=== PATIENT | female | born 1990 | race Caucasian/White ===

== ENCOUNTER 2017-03-02 14:52 | Emergency (ER) | payer OTHER, SELFPAY ==
[2017-03-02 15:07] VITALS: BMI 27.9
[2017-03-02 15:08] VITALS: RESP 18; TEMP 98.4; O2SAT 100
[2017-03-02] MEDS ORDERED: Sodium Chloride 0.9% 1,000 ML IV STA (15:29)
--- NOTE | 2017-03-02 15:34 | ED PDOC ---
Arrival/HPI - General Chief Complaint: Dizziness/Lightheaded Time Seen by Provider: 03/02/17 15:19 Historian: Patient - History of Present Illness Narrative History of Present Illness (Text): 03/02/17 15:31 26 y/o female, no pmh, nkda, c/o feeling dizziness while picking up a box of object at work x 1 hour. Pt. 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 Past Medical History - Provider Review Nursing Documentation Reviewed: Yes - Infectious Disease Hx of Infectious Diseases: None - Tetanus Immunization Tetanus Immunization: Unknown - Cardiac Hx Cardiac Disorders: No - Pulmonary Hx Respiratory Disorders: No - Neurological Hx Neurological Disorder: No - HEENT Hx HEENT Disorder: No - Renal Hx Renal Disorder: No - Endocrine/Metabolic Hx Hypothyroidism: Yes (no longer on meds) - Hematological/Oncological Hx Blood Disorders: No Hx von Willebrand's Disease: No - Integumentary Hx Dermatological Disorder: No - Musculoskeletal/Rheumatological Hx Musculoskeletal Disorders: No - Gastrointestinal Hx Gastrointestinal Disorders: No - Genitourinary/Gynecological Hx Genitourinary Disorders: No - Psychiatric Hx Psychophysiologic Disorder: No Hx Depression: No Hx Emotional Abuse: No Hx Physical Abuse: No Hx Substance Use: No - Past Surgical History Past Surgical History: No Previous - Anesthesia Hx Anesthesia: No - Suicidal Assessment Feels Threatened In Home Enviroment: No Family/Social History - Physician Review Nursing Documentation Reviewed: Yes Family/Social History: Unknown Family HX Smoking Status: Never Smoked Hx Alcohol Use: No Hx Substance Use: No Hx Substance Use Treatment: No Allergies/Home Meds Allergies/Adverse Reactions: Allergies No Known Allergies Allergy (Verified 03/02/17 15:06) Review of Systems - Review of Systems Constitutional: Fatigue. absent: Fevers Eyes: absent: Vision Changes ENT: absent: Hearing Changes Respiratory: absent: Cough Cardiovascular: absent: Chest Pain Gastrointestinal: absent: Abdominal Pain, Nausea, Vomiting Genitourinary Female: absent: Dysuria Musculoskeletal: absent: Arthralgias, Back Pain, Neck Pain Skin: absent: Rash, Pruritis, Skin Lesions Neurological: Dizziness. absent: Headache, Focal Weakness, Gait Changes, Speech Changes, Facial Droop, Disequilibrium, Seizure Endocrine: absent: Diaphoresis Physical Exam Vital Signs Reviewed: Yes Vital Signs Temp Pulse Resp BP Pulse Ox 03/02/17 19:00 69 18 113/65 100 03/02/17 16:57 76 18 111/67 100 03/02/17 15:07 98.4 F 84 18 132/80 100 Temperature: Afebrile Blood Pressure: Normal Pulse: Regular Respiratory Rate: Normal Appearance: Positive for: Well-Appearing, Non-Toxic, Comfortable Pain Distress: None Mental Status: Positive for: Alert and Oriented X 3 - Systems Exam Head: Present: Atraumatic, Normocephalic Pupils: Present: PERRL Extroacular Muscles: Present: EOMI Conjunctiva: Present: Normal Ears: Present: NORMAL TM, Normal Canal. No: Erythema Mouth: Present: Moist Mucous Membranes Neck: Present: Normal Range of Motion Respiratory/Chest: Present: Clear to Auscultation, Good Air Exchange. No: Respiratory Distress, Accessory Muscle Use Cardiovascular: Present: Regular Rate and Rhythm, Normal S1, S2. No: Murmurs Abdomen: Present: Normal Bowel Sounds. No: Tenderness, Distention, Peritoneal Signs, Rebound Back: Present: Normal Inspection Upper Extremity: Present: Normal Inspection. No: Cyanosis, Edema Lower Extremity: Present: Normal Inspection. No: Edema Neurological: Present: GCS=15, Speech Normal, Motor Func Grossly Intact, Gait Normal, Memory Normal, Other (normal finger to nose test, normal heel to pinedo test, no drift, normal speech, +dixhall pike test. ) Skin: Present: Warm, Dry, Normal Color. No: Rashes Lymphatic: No: Cervical Adenopathy Psychiatric: Present: Alert, Oriented x 3, Normal Insight, Normal Concentration Medical Decision Making ED Course and Treatment: 03/02/17 15:39 -labs/ua r/o anemia/UTI -ekg r/o cardiac arrythymia -Orthostatic -IVF/antivert -CT HEAD r/o acute bleeding -observe and reassess 03/02/17 18:00 -NSR @ 76 BPM, no ST elevation or depression, no T wave inversion, compared with previous ekg. -CT head show no acute findings. -Othostatic v/s within normal limit. -Labs show no acute findings -UA show mild leukocyte, pt. is asymptomatic and not , urine cultre added. -Pt. stated that she has discomfort and headache. IVF/toradol and reglan ordered. 03/02/17 19:53 -Pt. feels completely relief with the IV toradol and reglan. -Pt. feels asymptomatic now, walking and smiling, request to be discharge home, will discharge home. -Discharge home with education on taking tylenol or motrin for pain, meclizine, stay hydrated, no gym or exercise, follow up with your own pmd within 2 days, return to the ER for any new or worsening signs or symptoms. - Lab Interpretations Microbiology Results: Microbiology Results 03/02/17 16:15 Urine,Clean Catch Urine Culture - Final No Growth (<1,000 CFU/ML) Lab Results: 03/02/17 15:35 03/02/17 15:35 Lab Results 03/02/17 16:15: Urine Color Yellow, Urine Appearance Clear, Urine pH 7.0, Ur Specific [place] <= 1.005, Urine Protein Negative, Urine Glucose (UA) Negative, Urine Ketones Negative, Urine Blood Small H, Urine Nitrate Negative, Urine Bilirubin Negative, Urine Urobilinogen 0.2, Ur Leukocyte Esterase Small H, Urine RBC 0 - 2, Urine WBC 0 - 2 03/02/17 15:35: Sodium 139, Potassium 3.8, Chloride 102, Carbon Dioxide 28, Anion Gap 13, BUN 15, Creatinine 0.8, Est GFR ( Amer) > 60, Est GFR (Non- Af Amer) > 60, Random Glucose 85, Calcium 9.5, Total Bilirubin 0.7, AST 27, ALT 28, Alkaline Phosphatase 64, Total Protein 7.5, Albumin 4.1, Globulin 3.4, Albumin/Globulin Ratio 1.2 03/02/17 15:35: WBC 8.8, RBC 4.15, Hgb 13.1, Hct 38.4, MCV 92.5, MCH 31.6, MCHC 34.1, RDW 12.5, Plt Count 291, MPV 10.8, Gran % 60.2, Lymph % (Auto) 31.4, [place] % (Auto) 6.9 H, Eos % (Auto) 1.0 L, Baso % (Auto) 0.5, Gran # 5.28, Lymph # 2.8 , [place] # 0.6, Eos # 0.1, Baso # 0.04 I have reviewed the lab results: Yes Interpretation: Abnormal lab values (+UTI) - RAD Interpretation Radiology Orders: 03/02/17 15:32 HEAD W/O CONTRAST [CT] Stat PROCEDURE: CT HEAD WITHOUT CONTRAST. HISTORY: sudden onset dizziness COMPARISON: None available. TECHNIQUE: Axial computed tomography images were obtained through the head/brain without intravenous contrast. Radiation dose: Total exam DLP = 725.84 mGy-cm. This CT exam was performed using one or more of the following dose reduction techniques: Automated exposure control, adjustment of the mA and/or kV according to patient size, and/or use of iterative reconstruction technique. FINDINGS: HEMORRHAGE: No intracranial hemorrhage. BRAIN: No mass effect or edema. No atrophy or chronic microvascular ischemic changes. VENTRICLES: No hydrocephalus. CALVARIUM: Unremarkable. PARANASAL SINUSES: Unremarkable as visualized. No significant inflammatory changes. MASTOID AIR CELLS: Unremarkable as visualized. No inflammatory changes. OTHER FINDINGS: None. IMPRESSION: No acute intracranial pathology identified. Dump Attendant: Radiologist - EKG Interpretation EKG Interpretation (Text): 03/02/17 15:42 NSR @ 76 BPM, no ST elevation or depression, no T wave inversion, compared with previous ekg. Interpreted by ED Physician: Yes Type: 12 lead EKG Comparison: Com.w/previous EKG - Medication Orders Current Medication Orders: Discontinued Medications Acetaminophen (Tylenol 325mg Tab) Confirm Administered Dose 650 mg .ROUTE .STK- MED ONE Stop: 03/02/17 17:25 Last Admin: 03/02/17 17:26 Dose: Acetaminophen (Tylenol 325mg Tab) 650 mg PO STAT STA Stop: 03/02/17 17:26 Last Admin: 03/02/17 17:26 Dose: 650 mg Sodium Chloride (Sodium Chloride 0.9%) 1,000 mls @ 999 mls/hr IV .Q1H1M STA Stop: 03/02/17 16:29 Last Admin: 03/02/17 15:45 Dose: 999 mls/hr Sodium Chloride (Sodium Chloride 0.9%) 1,000 mls @ 500 mls/hr IV .Q2H RONY Last Admin: 03/02/17 18:34 Dose: 500 mls/hr Ketorolac Tromethamine (Toradol) 30 mg IVP STAT STA Stop: 03/02/17 18:08 Last Admin: 03/02/17 18:34 Dose: 30 mg Meclizine HCl (Antivert) 50 mg PO STAT STA Stop: 03/02/17 15:30 Last Admin: 03/02/17 16:17 Dose: 50 mg Metoclopramide HCl (Reglan) 10 mg IVP STAT STA Stop: 03/02/17 18:08 - PA / CANCER GENETICS ASSISTANT / Resident Statement /DO has reviewed & agrees with the documentation as recorded. Disposition/Present on Arrival - Present on Arrival Any Indicators Present on Arrival: No History of DVT/PE: No History of Uncontrolled Diabetes: No Urinary Catheter: No History of Decub. Ulcer: No History Surgical Site Infection Following: None - Disposition Have Diagnosis and Disposition been Completed?: Yes Diagnosis: Vertigo Disposition: HOME/ ROUTINE Disposition Time: 19:54 Patient Plan: Discharge Condition: IMPROVED Additional Instructions: Discharge home with education on taking tylenol or motrin for pain, meclizine, stay hydrated, no gym or exercise, follow up with your own pmd within 2 days, return to the ER for any new or worsening signs or symptoms. Prescriptions: Meclizine [Meclizine*] 25 mg PO Q6 PRN #30 tab PRN Reason: Other Referrals: PCP,NO [Primary Care Provider] - Follow up with primary Patrick Martinez MD [Staff Provider] - Follow up with primary Lucho Bond MD [Staff Provider] - Follow up with primary [facility] at [facility] [place] [Outside] - Follow up with primary Forms: WORK NOTE
[2017-03-02 16:02] LABS: ADD MANUAL DIFF? NO
[2017-03-02 16:22] LABS: ALB/GLOB RATIO 1.2 (1.1-1.8); ALKALINE PHOSPHATASE 64 U/L (38-133); ALT/SGPT 28 U/L (7-56); AST/SGOT 27 U/L (15-39); BILIRUBIN,TOTAL 0.7 mg/dL (0.2-1.3); BLOOD UREA NITROGEN 15 mg/dL (7-21); CALCIUM 9.5 mg/dL (8.4-10.5); CARBON DIOXIDE 28 mmol/L (21-33); CHLORIDE 102 mmol/L (98-107); GFR AFRICAN-AMERICAN > 60; GLUCOSE,RANDOM 85 mg/dL (70-110); POTASSIUM 3.8 mmol/L (3.6-5.0); SODIUM 139 mmol/L (132-148); TOTAL PROTEIN 7.5 g/dL (5.8-8.3)
[2017-03-02 16:25] LABS: BASO # 0.04 K/mm3 (0.0-2.0); BASO % 0.5 % (0.0-3.0); EOS # 0.1 (0.0-0.7); GRAN # 5.28 (1.4-6.5); GRAN % 60.2 % (50.0-68.0); HEMATOCRIT 38.4 % (36.0-48.0); LYMPH # 2.8 (1.2-3.4); LYMPH % 31.4 % (22.0-35.0); MEAN CELL VOLUME 92.5 fL (80.0-105.0); MEAN CORPUSCULAR HEMOGLOBIN 31.6 pg (25.0-35.0); MEAN CORPUSCULAR HGB CONC 34.1 g/dl (31.0-37.0); MEAN PLATELET VOLUME 10.8 fl (7.0-11.0); MONO # 0.6 (0.1-0.6); MONO % 6.9 % (1.0-6.0); PLATELET COUNT 291 10^3/uL (120.0-450.0); RED CELL DISTRIBUTION WIDTH 12.5 % (11.5-14.5); WHITE BLOOD COUNT 8.8 10^3/ul (4.5-11.0)
[2017-03-02 16:45] LABS: URINE BILIRUBIN NEGATIVE (NEGATIVE); URINE BLOOD SMALL (NEGATIVE); URINE GLUCOSE (UA) NEGATIVE (NEGATIVE); URINE KETONE NEGATIVE (NEGATIVE); URINE LEUKOCYTE ESTERASE SMALL Leu/uL (NEGATIVE); URINE PROTEIN NEGATIVE mg/dL (<30 mg/dL); URINE UROBILINOGEN 0.2 E.U./dL (<1 E.U./dL)
[2017-03-02 16:48] LABS: URINE APPEARANCE CLEAR (CLEAR); URINE COLOR YELLOW (YELLOW)
[2017-03-02 16:54] LABS: URINE RBC 0 - 2 /hpf (0-2); URINE WBC 0 - 2 /hpf (0-6)
--- NOTE | 2017-03-02 17:51 | CT ---
PROCEDURE: CT HEAD WITHOUT CONTRAST. HISTORY: sudden onset dizziness COMPARISON: None available. TECHNIQUE: Axial computed tomography images were obtained through the head/brain without intravenous contrast. Radiation dose: Total exam DLP = 725.84 mGy-cm. This CT exam was performed using one or more of the following dose reduction techniques: Automated exposure control, adjustment of the mA and/or kV according to patient size, and/or use of iterative reconstruction technique. FINDINGS: HEMORRHAGE: No intracranial hemorrhage. BRAIN: No mass effect or edema. No atrophy or chronic microvascular ischemic changes. VENTRICLES: No hydrocephalus. CALVARIUM: Unremarkable. PARANASAL SINUSES: Unremarkable as visualized. No significant inflammatory changes. MASTOID AIR CELLS: Unremarkable as visualized. No inflammatory changes. OTHER FINDINGS: None. IMPRESSION: No acute intracranial pathology identified.
[2017-03-02] MEDS ORDERED: Sodium Chloride 0.9% 1,000 ML IV SCH (18:15)
--- NOTE | 2017-03-02 18:37 | CARD ---
APPROVED REPORT EKG Measurement Heart [id number] <Conclusion> Normal sinus rhythm Low voltage QRS Borderline ECG
[2017-03-02 20:04] VITALS: BP 113/65; PULSE 69
== END 2017-03-02 20:04 | disposition home or self-care (01) ==
LOC: ED 14:52
DX: R52 Pain, unspecified (principal)
CPT/HCPCS: 70450; 80053; 81001; 85025; 87086; 93005; 96374; 99285; J1885; J7040

== ENCOUNTER 2017-10-08 06:30 | Emergency (ER) | payer OTHER ==
[2017-10-08 06:31] VITALS: BMI 27.9
[2017-10-08 07:14] LABS: BASO # 0.05 K/mm3 (0.0-2.0); BASO % 0.8 % (0.0-3.0); EOS # 0.2 (0.0-0.7); EOS % 2.3 % (1.5-5.0); GRAN # 3.06 (1.4-6.5); GRAN % 47.9 % (50.0-68.0); HEMATOCRIT 39.3 % (36.0-48.0); LYMPH # 2.6 (1.2-3.4); LYMPH % 40.4 % (22.0-35.0); MEAN CELL VOLUME 94.9 fl (80.0-105.0); MEAN CORPUSCULAR HEMOGLOBIN 32.1 pg (25.0-35.0); MEAN CORPUSCULAR HGB CONC 33.8 g/dl (31.0-37.0); MEAN PLATELET VOLUME 10.1 fl (7.0-11.0); MONO # 0.6 (0.1-0.6); MONO % 8.6 % (1.0-6.0); RED CELL DISTRIBUTION WIDTH 12.3 % (11.5-14.5); WHITE BLOOD COUNT 6.4 10^3/ul (4.5-11.0)
--- NOTE | 2017-10-08 07:19 | ED PDOC ---
Arrival/HPI - General Historian: Patient, Drama Director (Patients friend) - History of Present Illness Time/Duration: 24 hours Symptom Onset: Sudden Symptom Course: Unchanged Quality: Pressure, Stabbing Severity Level: 10 Activities at Onset: Rest, Light Context: Home <Antwon Goldberg - Last Filed: 10/08/17 09:22> <MayelaYony L - Last Filed: 10/08/17 09:34> - General Chief Complaint: Chest Pain - History of Present Illness Narrative History of Present Illness (Text): 10/08/17 07:14 Ms. Carrero is a 27 year old female with no significant past medical history who presents to the [facility] ED with a chief complaint of substernal chest pain that radiates to her back that started last night. Patient reports that last night at approximately 2000 she was resting at her home when she suddenly felt a sharp aching pain substernally that radiates to her back that is worth with deep breathing. She states that the pain has been constant since that time and reports no relief with ibuprofen. She denies any recent trauma, recent surgeries , recent travel, recent immobilization, OCP use, recent illness, fever, chills, headache, changes in her vision, palpitations, SOB, cough, hemoptysis, abdominal pain, N/V/D/C, burning/pain with urination, rashes or any numbness/ tingling/weakness of any extremity. (Antwon Goldberg) Past Medical History - Provider Review Nursing Documentation Reviewed: Yes - Travel History Have you recently traveled outside [place] w/in the past 3 mons?: No - Past History Past History: No Previous - Infectious Disease Hx of Infectious Diseases: None - Tetanus Immunization Tetanus Immunization: Unknown - Cardiac Hx Cardiac Disorders: No - Pulmonary Hx Respiratory Disorders: No - Neurological Hx Neurological Disorder: No - HEENT Hx HEENT Disorder: No - Renal Hx Renal Disorder: No - Endocrine/Metabolic Hx Hypothyroidism: Yes (no longer on meds) - Hematological/Oncological Hx Blood Disorders: No Hx von Willebrand's Disease: No - Integumentary Hx Dermatological Disorder: No - Musculoskeletal/Rheumatological Hx Musculoskeletal Disorders: No - Gastrointestinal Hx Gastrointestinal Disorders: No - Genitourinary/Gynecological Hx Genitourinary Disorders: No - Psychiatric Hx Psychophysiologic Disorder: No Hx Depression: No Hx Emotional Abuse: No Hx Physical Abuse: No Hx Substance Use: No - Past Surgical History Past Surgical History: No Previous - Anesthesia Hx Anesthesia: No - Suicidal Assessment Feels Threatened In Home Enviroment: No <Antwon Goldberg - Last Filed: 10/08/17 09:22> Family/Social History - Physician Review Nursing Documentation Reviewed: Yes Family/Social History: denies: CVA/TIA, Diabetes, Hypertension, CAD/OH, Neoplasm /Cancer Smoking Status: Never Smoked Hx Alcohol Use: No Hx Substance Use: No Hx Substance Use Treatment: No <Antwon Goldberg - Last Filed: 10/08/17 09:22> Allergies/Home Meds <Antwon Goldberg - Last Filed: 10/08/17 09:22> <Yony Pedro - Last Filed: 10/08/17 09:34> Allergies/Adverse Reactions: Allergies No Known Allergies Allergy (Verified 03/02/17 15:06) Home Medications: Home Meds Medication Instructions Recorded Confirmed No Known Home Med 10/08/17 10/08/17 Review of Systems - Physician Review All systems were reviewed & negative as marked: Yes - Review of Systems Constitutional: Normal. absent: Fevers, Night Sweats Eyes: Normal. absent: Vision Changes ENT: Normal Respiratory: Normal. absent: SOB, Cough Cardiovascular: Chest Pain (As described in HPI). absent: Normal, Palpitations , Syncope Gastrointestinal: Normal. absent: Abdominal Pain, Constipation, Diarrhea, Nausea, Vomiting Genitourinary Female: Normal. absent: Dysuria Musculoskeletal: Back Pain. absent: Normal Skin: Normal. absent: Rash Neurological: Normal. absent: Headache Endocrine: Normal Hemo/Lymphatic: Normal Psychiatric: Normal <Antwon Goldberg - Last Filed: 10/08/17 09:22> Physical Exam Vital Signs Reviewed: Yes Temperature: Afebrile Blood Pressure: Normal Pulse: Regular Respiratory Rate: Normal Appearance: Positive for: Well-Appearing, Non-Toxic, Comfortable Pain Distress: Mild Mental Status: Positive for: Alert and Oriented X 3 - Systems Exam Head: Present: Atraumatic, Normocephalic Pupils: Present: PERRL Extroacular Muscles: Present: EOMI Conjunctiva: Present: Normal Mouth: Present: Moist Mucous Membranes Pharnyx: Present: Normal. No: ERYTHEMA, EXUDATE, TONSILS ENLARGED Nose (External): Present: Atraumatic Nose (Internal): Present: Normal Inspection, No Active Bleeding Neck: Present: Normal Range of Motion, Trachea Midline. No: Meningeal Signs, MIDLINE TENDERNESS, Paraspinal Tenderness, JVD, Lymphadenopathy Respiratory/Chest: Present: Clear to Auscultation, Good Air Exchange, Tender to Palpation (TTP over sternum and left anterior chest wall). No: Respiratory Distress, Accessory Muscle Use, Wheezes, Decreased Breath Sounds, Rales, Retracting, Rhonchi, Tachypneic Cardiovascular: Present: Regular Rate and Rhythm, Normal S1, S2, Peripheal Pulses Present, Other (BP in R arm: 108/61 and BP in L arm: 111/64). No: Murmurs, Irregular Rhythm, Tachycardic, Bradycardic Abdomen: Present: Normal Bowel Sounds. No: Tenderness, Distention, Peritoneal Signs Back: Present: Normal Inspection. No: CVA Tenderness, Midline Tenderness, Paraspinal Tenderness Upper Extremity: Present: Normal Inspection. No: Cyanosis, Edema Lower Extremity: Present: Normal Inspection. No: Edema Neurological: Present: GCS=15, CN II-XII Intact, Speech Normal Skin: Present: Warm, Dry, Normal Color. No: Rashes Lymphatic: No: Cervical Adenopathy Psychiatric: Present: Alert, Oriented x 3, Normal Insight, Normal Concentration <Antwon Goldberg - Last Filed: 10/08/17 09:22> Vital Signs Temp Pulse Resp BP Pulse Ox 10/08/17 09:06 58 L 16 108/62 99 10/08/17 07:35 107/65 10/08/17 07:23 98.7 F 56 L 18 101/57 L 100 Medical Decision Making - Lab Interpretations I have reviewed the lab results: Yes - RAD Interpretation Pipeline Operator: ED Physician, Radiologist - EKG Interpretation Interpreted by ED Physician: Yes Type: 12 lead EKG <Antwon Goldberg - Last Filed: 10/08/17 09:22> <Yony Pedro - Last Filed: 10/08/17 09:34> ED Course and Treatment: 10/08/17 07:25 Impression: 27 year old female with no significant past medical history who presents to the [facility] ED with a chief complaint of substernal pleuritic chest pain that radiates to her back that started last night. Plan: -CBC, CMP, INR/aPTT, D-Dimer, UA, POC Urine , Cardiac Iso's -EKG -Chest X-Ray -Reassess and disposition Prior Visits: 02/2017: Patient seen and evaluated for dizziness (Antwon Goldberg) 10/08/17 08:27 Patient Seen With Resident: In agreement with resident note which contains more details about the patient. Patient was seen and evaluated with resident. Came up with plan and treatment together. Patient presents complaining of substernal chest pain that radiates to her back that began last night. Plan includes labs, EKG, Chest X-ray. Patient's CXR was normal. She had palpation to chest wall tenderness and improved with toradol. No cardiac risk factors. She is stable and improved for discharged to follow up with her primary care doctor and cardiology as an outpatient. She was advised to return to the ED if symptoms worsen or any other concern. (Yony Pedro) - Lab Interpretations Lab Results: 10/08/17 07:00 10/08/17 07:00 Lab Results 10/08/17 07:30: D-Dimer, Quantitative < 200 10/08/17 07:30: Urine Color Yellow, Urine Appearance Clear, Urine pH 5.5, Ur Specific [place] >= 1.030, Urine Protein Negative, Urine Glucose (UA) Negative, Urine Ketones Negative, Urine Blood Large H, Urine Nitrate Negative, Urine Bilirubin Negative, Urine Urobilinogen 0.2, Ur Leukocyte Esterase Negative, Urine RBC 20 - 25, Urine WBC 1 - 3, Ur Epithelial Cells 6 - 8, Amorphous Sediment Few, Urine Bacteria Many 10/08/17 07:00: Sodium 140, Potassium 4.0, Chloride 107, Carbon Dioxide 24, Anion Gap 13, BUN 12, Creatinine 0.8, Est GFR ( Amer) > 60, Est GFR (Non- Af Amer) > 60, Random Glucose 85, Calcium 9.7, Magnesium 1.7, Total Bilirubin 0.7, AST 34, ALT 20, Alkaline Phosphatase 59, Lactate Dehydrogenase 312 L, Total Creatine Kinase 33 L, Troponin I < 0.01, Total Protein 7.3, Albumin 4.2, Globulin 3.2, Albumin/Globulin Ratio 1.3 10/08/17 07:00: PT 12.9 H, INR 1.17 H, APTT 26.4 10/08/17 07:00: WBC 6.4 D, RBC 4.14, Hgb 13.3, Hct 39.3, MCV 94.9, MCH 32.1, MCHC 33.8, RDW 12.3, Plt Count 267, MPV 10.1, Gran % 47.9 L, Lymph % (Auto) 40.4 H, [place] % (Auto) 8.6 H, Eos % (Auto) 2.3, Baso % (Auto) 0.8, Gran # 3.06, Lymph # 2.6, [place] # 0.6, Eos # 0.2, Baso # 0.05 - RAD Interpretation Radiology Orders: 10/08/17 06:57 CHEST PORTABLE [RAD] Stat - Medication Orders Current Medication Orders: Discontinued Medications Ketorolac Tromethamine (Toradol) 30 mg IM STAT STA Stop: 10/08/17 07:25 Last Admin: 10/08/17 07:41 Dose: 30 mg MAR Pain Assessment Document 10/08/17 07:41 SRE (Rec: 10/08/17 07:41 SRE [id number]) Pain Reassessment Is this a pain reassessment? Yes Sleep Is patient sleeping during reassessment? No Presence of Pain Presence of Pain Yes Pain Scale Used Pain Scale Used Numeric Location Left, Right or Bilateral Left Pain Location Body Site Chest Description Description Intermittent IM Administration Charges Document 10/08/17 07:41 SRE (Rec: 10/08/17 07:41 SRE [id number]) Charges for Administration # of IM Administrations 1 SARAH Risk Score for UA/NSTEMI - SARAH Risk Score Age > 64: NO 3 or more CAD Risk Factors: NO Known CAD (Stenosis greater than 50%): NO Aspirin use in past 7 days: NO Severe Angina: NO EKG ST changes greater than 0.5mm: NO Positive Cardiac Marker: NO SARAH Score: 0 % risk at 14 days of: all cause mortality, new or recurrent OH, or severe recurrent ischemia requiring urgen revascularization: 5% <Yony Pedro - Last Filed: 10/08/17 09:34> <Antwon Goldberg - Last Filed: 10/08/17 09:22> - Scribe Statement The provider has reviewed the documentation as recorded by the Scribe <Yony Pedro - Last Filed: 10/08/17 09:34> - Scribe Statement Raven Aguilera Provider Scribe Attestation: All medical record entries made by the Scribe were at my direction and personally dictated by me. I have reviewed the chart and agree that the record accurately reflects my personal performance of the history, physical exam, medical decision making, and the department course for this patient. I have also personally directed, reviewed, and agree with the discharge instructions and disposition. (Yony Pedro) Disposition/Present on Arrival - Present on Arrival Any Indicators Present on Arrival: No History of DVT/PE: No History of Uncontrolled Diabetes: No Urinary Catheter: No History of Decub. Ulcer: No History Surgical Site Infection Following: None - Disposition Have Diagnosis and Disposition been Completed?: Yes Disposition Time: 08:55 Patient Plan: Discharge <Antwon Goldberg - Last Filed: 10/08/17 09:22> <Yony Pedro - Last Filed: 10/08/17 09:34> - Disposition Diagnosis: Chest pain Disposition: HOME/ ROUTINE Condition: GOOD Discharge Instructions (ExitCare): Chest Pain (ED), Costochondritis (ED) Print Language: AUSTRIAN Additional Instructions: Ms. Carrero, thank you for letting us take care of you today. Your provider was Dr. Pedro. You were treated for chest pain. The emergency medical care you received today was directed at your acute symptoms. If you were prescribed any medication, please fill it and take as directed. It may take several days for your symptoms to resolve. Return to the Emergency Department if your symptoms worsen, do not improve, or if you have any other problems. Please contact your doctor or call one of the physicians/clinics you have been referred to that are listed on the Patient Visit Information form that is included in your discharge packet. Bring any paperwork you were given at discharge with you along with any medications you are taking to your follow up visit. Our treatment cannot replace ongoing medical care by a primary care provider (PCP) outside of the emergency department. Thank you for allowing the [facility] team to be part of your care today. PLEASE FOLLOW UP WITH YOUR PRIMARY CARE DOCTOR WITHIN ONE WEEK If you had an X-Ray or CT scan: A Radiologist will review the ED reading if any change in treatment is needed we will contact you. Referrals: PCP,NO [Primary Care Provider] - Follow up with primary Forms: [employer] (Jamaican)
[2017-10-08 07:29] LABS: ALB/GLOB RATIO 1.3 (1.1-1.8); ALKALINE PHOSPHATASE 59 U/L (38-126); ALT/SGPT 20 U/L (7-56); AST/SGOT 34 U/L (14-36); BILIRUBIN,TOTAL 0.7 mg/dL (0.2-1.3); BLOOD UREA NITROGEN 12 mg/dL (7-21); CALCIUM 9.7 mg/dL (8.4-10.5); CARBON DIOXIDE 24 mmol/L (21-33); CHLORIDE 107 mmol/L (98-107); GFR AFRICAN-AMERICAN > 60; GLUCOSE,RANDOM 85 mg/dL (70-110); INR 1.17 (0.93-1.08); MAGNESIUM 1.7 mg/dL (1.7-2.2); PARTIAL THROMBOPLASTIN TIME 26.4 Seconds (25.1-36.5); SODIUM 140 mmol/L (132-148); TOTAL PROTEIN 7.3 g/dL (5.8-8.3)
[2017-10-08 07:34] VITALS: TEMP 98.7
[2017-10-08 07:40] LABS: TROPONIN I < 0.01 ng/mL
[2017-10-08 07:56] LABS: PH,URINE 5.5 (4.7-8.0); URINE BILIRUBIN NEGATIVE (NEGATIVE); URINE BLOOD LARGE (NEGATIVE); URINE GLUCOSE (UA) NEGATIVE (NEGATIVE); URINE KETONE NEGATIVE (NEGATIVE); URINE LEUKOCYTE ESTERASE NEGATIVE Leu/uL (NEGATIVE); URINE PROTEIN NEGATIVE mg/dL (<30 mg/dL); URINE UROBILINOGEN 0.2 E.U./dL (<1 E.U./dL)
[2017-10-08 08:03] LABS: URINE APPEARANCE CLEAR (CLEAR); URINE COLOR YELLOW (YELLOW)
[2017-10-08 08:16] LABS: URINE AMORPHOUS SEDIMENT FEW; URINE BACTERIA MANY (NEG); URINE RBC 20 - 25 /hpf (0-2)
--- NOTE | 2017-10-08 09:09 | RAD ---
HISTORY: chest pain COMPARISON: No prior. FINDINGS: LUNGS: No active pulmonary disease. PLEURA: No significant pleural effusion identified, no pneumothorax apparent. CARDIOVASCULAR: Normal. OSSEOUS STRUCTURES: No significant abnormalities. VISUALIZED UPPER ABDOMEN: Normal. OTHER FINDINGS: None. IMPRESSION: No active disease.
[2017-10-08 09:10] VITALS: BP 108/62; PULSE 58; RESP 16; O2SAT 99
--- NOTE | 2017-10-08 10:43 | CARD ---
APPROVED REPORT EKG Measurement Heart [id number] <Conclusion> Normal sinus rhythm Normal ECG
== END 2017-10-08 09:13 | disposition home or self-care (01) ==
LOC: ED 06:30
DX: R07.9 Chest pain, unspecified (principal); E03.9 Hypothyroidism, unspecified
CPT/HCPCS: 71010; 80053; 81001; 82550; 83615; 83735; 84484; 85025; 85378; 85610; 85730; 93005; 96372; 99283; J1885

== ENCOUNTER 2017-10-08 23:27 | Emergency (ER) | payer OTHER ==
[2017-10-08 23:27] VITALS: BMI 27.9
[2017-10-08 23:43] VITALS: TEMP 97.9
[2017-10-09] MEDS ORDERED: Alum-Mag Hydrox-Simethicone Susp (30 mL) PO STA (00:10)
[2017-10-09] MEDS ORDERED: Atrop/Hyosc/Scopal/PB Elixir (120 ml) PO STA (00:10)
--- NOTE | 2017-10-09 00:50 | ED PDOC ---
Arrival/HPI - General Historian: Patient <Nabila Xavier PA-C - Last Filed: 10/09/17 01:20> <Katharine Obrien - Last Filed: 10/09/17 03:42> - General Chief Complaint: Chest Pain Time Seen by Provider: 10/08/17 23:37 - History of Present Illness Narrative History of Present Illness (Text): 10/09/17 00:46 27 year old female with no significant past medical history who returns to the [facility] ED with similar c/o stabbing lower sternal chest pain that radiates to her L mid back that started last night at approximately 2000 when she was resting at home. She states that the pain started suddenly and is worse with deep breathing. She states that she was evaluated earlier this AM for the symptoms and was d/c home, she adds taking ibuprofen with no relief. Admits to SOB, nausea and acid like discomfort to the epigastric area all related to her current symptoms. She states that she ate dinner tonight and felt well, then 2 hours later her symptoms started. She denies any recent trauma, recent surgeries , recent travel, recent immobilization, OCP use, recent illness, fever, chills, headache, palpitations, cough, hemoptysis, V/D/C, dysuria, rashes or any numbness/tingling/weakness of any extremity. (Nabila Xavier PA-C) Past Medical History - Provider Review Nursing Documentation Reviewed: Yes - Past History Past History: No Previous - Infectious Disease Hx of Infectious Diseases: None - Tetanus Immunization Tetanus Immunization: Unknown - Cardiac Hx Cardiac Disorders: No - Pulmonary Hx Respiratory Disorders: No - Neurological Hx Neurological Disorder: No - HEENT Hx HEENT Disorder: No - Renal Hx Renal Disorder: No - Endocrine/Metabolic Hx Hypothyroidism: Yes (no longer on meds) - Hematological/Oncological Hx Blood Disorders: No Hx von Willebrand's Disease: No - Integumentary Hx Dermatological Disorder: No - Musculoskeletal/Rheumatological Hx Musculoskeletal Disorders: No - Gastrointestinal Hx Gastrointestinal Disorders: No - Genitourinary/Gynecological Hx Genitourinary Disorders: No - Psychiatric Hx Psychophysiologic Disorder: No Hx Depression: No Hx Emotional Abuse: No Hx Physical Abuse: No Hx Substance Use: No - Past Surgical History Past Surgical History: No Previous - Anesthesia Hx Anesthesia: No - Suicidal Assessment Feels Threatened In Home Enviroment: No <Nabila Xavier PA-C - Last Filed: 10/09/17 01:20> Family/Social History - Physician Review Nursing Documentation Reviewed: Yes Family/Social History: No Known Family HX Smoking Status: Never Smoked Hx Alcohol Use: No Hx Substance Use: No Hx Substance Use Treatment: No <Nabila Xavier PA-C - Last Filed: 10/09/17 01:20> Allergies/Home Meds <Nabila Xavier PA-C - Last Filed: 10/09/17 01:20> <Katharine Obrien - Last Filed: 10/09/17 03:42> Allergies/Adverse Reactions: Allergies No Known Allergies Allergy (Verified 10/08/17 23:39) Review of Systems - Review of Systems Constitutional: absent: Fatigue, Weight Change, Fevers Respiratory: SOB. absent: Cough, Sputum Cardiovascular: Chest Pain. absent: Palpitations, Edema Gastrointestinal: Nausea. absent: Abdominal Pain, Diarrhea, Vomiting Genitourinary Female: absent: Dysuria, Frequency, Hematuria Musculoskeletal: Back Pain. absent: Arthralgias, Neck Pain Skin: absent: Rash, Pruritis, Skin Lesions Neurological: absent: Headache, Dizziness, Focal Weakness <Nabila Xavier PA-C - Last Filed: 10/09/17 01:20> Physical Exam <Nabila Xavier PA-C - Last Filed: 10/09/17 01:20> <Katharine Obrien - Last Filed: 10/09/17 03:42> - Physical Exam Narrative Physical Exam (Text): 10/09/17 00:50 GENERAL APPEARANCE: Patient is awake, alert, oriented x 3, in mild painful distress, is tearful SKIN: Warm, dry; (-) cyanosis. EYES: (-) conjunctival pallor. ENMT: Mucous membranes moist. NECK: (-) tenderness, (-) stiffness, (-) lymphadenopathy, (-) JVD. CHEST AND RESPIRATORY: (-) rash, (+) chest wall tenderness to the lower sternum. Lungs: (-) rales, (-) rhonchi, (-) wheezes, (-) rub; breath sounds equal bilaterally. HEART AND CARDIOVASCULAR: (-) irregularity; (-) murmur, (-) gallop, (-) rub. ABDOMEN AND GI: Soft; (-) distention, (+) mild tenderness, (-) palpable pulsatile mass. BACK: (+) mild tenderness to the L mid back, (-) midline tenderness. EXTREMITIES: (-) deformity; (-) edema, (-) calf tenderness. (+) distal pulses. NEURO AND PSYCH: Mental status as above. Cranial nerves grossly intact; strength symmetric. (Nabila Xavier PA-C) Vital Signs Temp Pulse Resp BP Pulse Ox 10/09/17 03:01 77 18 100/58 L 99 10/09/17 02:08 59 L 18 106/63 99 10/09/17 01:22 68 20 98/64 L 100 10/08/17 23:43 97.9 F 10/08/17 23:37 73 18 98 Medical Decision Making <Nabila Xavier PA-C - Last Filed: 10/09/17 01:20> <Katharine Obrien - Last Filed: 10/09/17 03:42> ED Course and Treatment: 10/09/17 00:51 27 year old female with no significant past medical history who presents to the [facility] ED with a chief complaint of lower sternal pleuritic chest pain that radiates to her back. ER visit from yesterday reviewed, patient had normal EKG, CXR and labs, including (-) trop and (-) d-dimer. Considering history and exam, likely patient has symptoms of dyspepsia, will medicate for now and re-evaluate to see if symptoms improve. Plan: -Pepcid IV -GI cocktail -EKG -Reassess and disposition EKG : NSR at 64 bpm, (-) acute ST changes, as read by GEORGE. On re-evaluation, patient reports some improvement of her chest and epigastric pain, however continues to have pain in her L mid back, worse with deep breathing. On exam, patient is still in mild painful distress, lungs cta, cardiac rrr, chest non-tender, abdomen non-tender, back +tenderness to the mid back. Given morphine 2 mg IV and zofran 4 mg IV. Considering continued symptoms CTA of chest ordered to r/o PE. (Coleen Xavier PA-Canne L.) 10/09/17 02:55 On re-evaluation, patient feels better and is in no acute distress. I have discussed the results and plan with the patient, who expresses understanding. Patient in agreement with plan to be discharged home. Patient is stable for discharge. Patient was instructed to follow up with physician or return if symptoms worsen or new concerning symptoms arise. CTA negative to aortic and pulmonary disease. (Katharine Obrien) - RAD Interpretation Radiology Orders: 10/09/17 00:11 ANGIO CHEST PE PROTOCOL [CT] Stat - Medication Orders Current Medication Orders: Discontinued Medications Al Hydrox/Mg Hydrox/Simethicone (Maalox Plus 30 Ml) 30 ml PO STAT STA Stop: 10/09/17 00:11 Last Admin: 10/09/17 00:43 Dose: 30 ml Belladonna/Phenobarbital ( Elixir) 5 ml PO STAT STA Stop: 10/09/17 00:11 Last Admin: 10/09/17 00:43 Dose: 5 ml Famotidine (Pepcid) 20 mg IVP STAT STA Stop: 10/09/17 00:11 Last Admin: 10/09/17 00:33 Dose: 20 mg IVP Administration Document 10/09/17 00:33 SS (Rec: 10/09/17 00:33 SS [id number]) Charges for Administration # of IVP Administrations 1 Lidocaine HCl (Lidocaine 2% Viscous) 15 ml PO ONCE ONE Stop: 10/09/17 00:11 Last Admin: 10/09/17 00:43 Dose: 15 ml Morphine Sulfate (Morphine) 4 mg IVP STAT STA Stop: 10/09/17 01:20 Last Admin: 10/09/17 01:49 Dose: Morphine Sulfate (Morphine) 2 mg IVP STAT STA Stop: 10/09/17 01:20 Last Admin: 10/09/17 01:32 Dose: 2 mg MAR Pain Assessment Document 10/09/17 01:32 YP (Rec: 10/09/17 01:32 YP [id number]) Pain Reassessment Is this a pain reassessment? Yes Sleep Is patient sleeping during reassessment? No Presence of Pain Presence of Pain Yes IVP Administration Document 10/09/17 01:32 YP (Rec: 10/09/17 01:32 YP [id number]) Charges for Administration # of IVP Administrations 1 - PA / LEATHER WORKER / Resident Statement MD/DO has reviewed & agrees with the documentation as recorded. <Nabila Xavier PA-C - Last Filed: 10/09/17 01:20> Disposition/Present on Arrival - Present on Arrival Any Indicators Present on Arrival: No History of DVT/PE: No History of Uncontrolled Diabetes: No Urinary Catheter: No History of Decub. Ulcer: No History Surgical Site Infection Following: None - Disposition Have Diagnosis and Disposition been Completed?: Yes <Nabila Xavier PA-C - Last Filed: 10/09/17 01:20> - Present on Arrival History of Decub. Ulcer: No - Disposition Have Diagnosis and Disposition been Completed?: Yes Disposition Time: 03:42 Patient Plan: Discharge <Katharine Obrien - Last Filed: 10/09/17 03:42> - Disposition Diagnosis: GERD (gastroesophageal reflux disease) Disposition: HOME/ ROUTINE Condition: GOOD Discharge Instructions (ExitCare): Gastroesophageal Reflux Disease (ED) Print Language: ARMENIAN Prescriptions: Pantoprazole Sodium [Protonix] 40 mg PO DAILY #14 ect Forms: [employer] (Samoan)
[2017-10-09] MEDS ORDERED: Morphine 4 mg/ml ISec IVP STA (01:19)
[2017-10-09] MEDS ORDERED: Morphine 2 mg/ml ISec IVP STA (01:19)
[2017-10-09] MEDS ORDERED: Iohexol 300 100 ML IJ ONE (01:24)
[2017-10-09 02:08] VITALS: RESP 18; O2SAT 99
--- NOTE | 2017-10-09 02:27 | CT ---
EXAM: CT Angiography Chest With Intravenous Contrast CLINICAL HISTORY: 27 years old, female; Pain; Chest pain; On breathing; Additional info: Chest pain, R/O pe. Patient C/O chest pain and back pain since tuesday. TECHNIQUE: Axial computed tomographic angiography images of the chest with intravenous contrast using pulmonary embolism protocol. All CT scans at this facility use one or more dose reduction techniques, viz.: automated exposure control; ma/kV adjustment per patient size (including targeted exams where dose is matched to indication; i.e. head); or iterative reconstruction technique. MIP reconstructed images were created and reviewed. Coronal and sagittal reformatted images were created and reviewed. CONTRAST: 100 mL of omni 300 administered intravenously. COMPARISON: No relevant prior studies available. FINDINGS: Limitations: Motion artifact - mild. Suboptimal timing of bolus. Pulmonary arteries: No definite filling defects within main, lobar, segmental branches. Suboptimal evaluation of subsegmental branches. Aorta: No aneurysm. No dissection. Lungs: No consolidation. Minimal atelectasis/scarring. Pleural space: No significant effusion. No pneumothorax. Heart: No cardiomegaly. No significant pericardial effusion. Bones/joints: No acute fracture. Soft tissues: Unremarkable. Lymph nodes: No pathologically enlarged lymph nodes. IMPRESSION: 1. No definite pulmonary embolism. 2. Incidental/non-acute findings are described above.
[2017-10-09 03:02] VITALS: BP 100/58; PULSE 77
--- NOTE | 2017-10-09 20:07 | CARD ---
APPROVED REPORT EKG Measurement Heart [id number] <Conclusion> Normal sinus rhythm T wave abnormality, consider anterior ischemia Abnormal ECG
== END 2017-10-09 03:02 | disposition home or self-care (01) ==
LOC: ED 23:27
DX: K21.9 Gastro-esophageal reflux disease without esophagitis (principal); E03.9 Hypothyroidism, unspecified
CPT/HCPCS: 71275; 93005; 96374; 96375; 99284; J2270; Q9967

== ENCOUNTER 2018-10-29 10:49 | Emergency (ER) | payer SELFPAY ==
[2018-10-29 10:50] VITALS: BMI 27.9
[2018-10-29 11:14] VITALS: RESP 18; TEMP 98.7
[2018-10-29 11:39] LABS: BASO # 0.03 K/mm3 (0.0-2.0); BASO % 0.4 % (0.0-3.0); EOS # 0.2 (0.0-0.7); EOS % 2.1 % (1.5-5.0); GRAN # 4.6 (1.4-6.5); GRAN % 55.6 % (50.0-68.0); HEMOGLOBIN 13.5 g/dL (12.0-16.0); LYMPH # 2.6 (1.2-3.4); LYMPH % 31.7 % (22.0-35.0); MEAN CELL VOLUME 92.6 fl (80.0-105.0); MEAN CORPUSCULAR HEMOGLOBIN 31.2 pg (25.0-35.0); MEAN CORPUSCULAR HGB CONC 33.7 g/dl (31.0-37.0); MEAN PLATELET VOLUME 9.6 fl (7.0-11.0); MONO # 0.8 (0.1-0.6); MONO % 10.2 % (1.0-6.0); RBC 4.33 10^6/uL (3.5-6.1); RED CELL DISTRIBUTION WIDTH 12.2 % (11.5-14.5); WHITE BLOOD COUNT 8.3 10^3/uL (4.5-11.0)
[2018-10-29 11:40] LABS: PH,URINE 6.5 (4.7-8.0); URINE BILIRUBIN NEGATIVE (NEGATIVE); URINE BLOOD LARGE (NEGATIVE); URINE GLUCOSE (UA) NEGATIVE (NEGATIVE); URINE LEUKOCYTE ESTERASE NEGATIVE Leu/uL (NEGATIVE); URINE PROTEIN NEGATIVE mg/dL (<30 mg/dL); URINE UROBILINOGEN 0.2 E.U./dL (<1 E.U./dL)
[2018-10-29 11:41] LABS: URINE COLOR LIGHT YELLOW (YELLOW)
[2018-10-29 11:44] LABS: URINE APPEARANCE SL CLOUDY (CLEAR)
[2018-10-29 11:45] LABS: URINE BACTERIA FEW /hpf
--- NOTE | 2018-10-29 11:48 | ED PDOC ---
Arrival/HPI - General Chief Complaint: Female Genitourinary Time Seen by Provider: 10/29/18 11:15 Historian: Patient - History of Present Illness Narrative History of Present Illness (Text): 28 year old with no significant past medical history presents to the emergency department complaining of dysuria and left-sided flank pain x 5 days. Associated suprapubic abdominal pain, nausea, and 2 episodes of vomiting today. Tolerating PO and having BM per baseline. No concern for STI. Currently mentruating. Denies fevers, chills, diarrhea, constipation, hematuria, neck pain, headache, vision changes, dizziness, chest pain, SOB, numbness, weakness, paresthesias, rash, vaginal discharge/odor, pelvic pain, or any other associated symptoms. Past Medical History - Provider Review Nursing Documentation Reviewed: Yes - Past History Past History: No Previous - Infectious Disease Hx of Infectious Diseases: None - Tetanus Immunization Tetanus Immunization: Unknown - Cardiac Hx Cardiac Disorders: No - Pulmonary Hx Respiratory Disorders: No - Neurological Hx Neurological Disorder: No - HEENT Hx HEENT Disorder: No - Renal Hx Renal Disorder: No - Endocrine/Metabolic Hx Hypothyroidism: Yes (no longer on meds) - Hematological/Oncological Hx Blood Disorders: No Hx von Willebrand's Disease: No - Integumentary Hx Dermatological Disorder: No - Musculoskeletal/Rheumatological Hx Musculoskeletal Disorders: No - Gastrointestinal Hx Gastrointestinal Disorders: No - Genitourinary/Gynecological Hx Genitourinary Disorders: No - Psychiatric Hx Psychophysiologic Disorder: No Hx Depression: No Hx Emotional Abuse: No Hx Physical Abuse: No Hx Substance Use: No - Past Surgical History Past Surgical History: No Previous - Anesthesia Hx Anesthesia: No - Suicidal Assessment Feels Threatened In Home Enviroment: No Family/Social History - Physician Review Nursing Documentation Reviewed: Yes Family/Social History: No Known Family HX Smoking Status: Never Smoked Hx Alcohol Use: No Hx Substance Use: No Hx Substance Use Treatment: No Allergies/Home Meds Allergies/Adverse Reactions: Allergies No Known Allergies Allergy (Verified 10/29/18 11:14) Review of Systems - Physician Review All systems were reviewed & negative as marked: Yes - Review of Systems Constitutional: Normal. absent: Fevers Eyes: Normal. absent: Vision Changes ENT: Normal. absent: Hearing Changes, Sinus Congestion Respiratory: Normal. absent: SOB, Cough Cardiovascular: Normal. absent: Chest Pain, Palpitations, Syncope Gastrointestinal: Normal. absent: Abdominal Pain, Stool Changes, Nausea, Vomiting, Appetite Changes Genitourinary Female: Normal, Dysuria, Vaginal Bleeding (currently menstruating). absent: Frequency, Urine Output Changes, Vaginal Discharge Musculoskeletal: Normal. absent: Back Pain, Neck Pain Skin: Normal. absent: Rash Neurological: Normal. absent: Headache, Dizziness, Focal Weakness, Disequilibrium Endocrine: Normal Hemo/Lymphatic: Normal Psychiatric: Normal Physical Exam Vital Signs Reviewed: Yes Vital Signs Temp Pulse Resp BP Pulse Ox 10/29/18 11:11 98.7 F 78 18 114/74 98 Temperature: Afebrile Blood Pressure: Normal Pulse: Regular Respiratory Rate: Normal Appearance: Positive for: Well-Appearing, Non-Toxic, Comfortable Pain Distress: None Mental Status: Positive for: Alert and Oriented X 3 - Systems Exam Head: Present: Atraumatic, Normocephalic Pupils: Present: PERRL Extroacular Muscles: Present: EOMI Conjunctiva: Present: Normal Mouth: Present: Moist Mucous Membranes Nose (External): Present: Atraumatic Nose (Internal): Present: Normal Inspection Neck: Present: Normal Range of Motion Respiratory/Chest: Present: Clear to Auscultation, Good Air Exchange. No: Respiratory Distress, Accessory Muscle Use Cardiovascular: Present: Regular Rate and Rhythm, Normal S1, S2, Peripheal Pulses Present. No: Murmurs Abdomen: Present: Tenderness (suprapubic), Normal Bowel Sounds. No: Distention, Peritoneal Signs, Rebound, Guarding Genitourinary/Pelvic Exam: Present: Normal External Genitalia, Vaginal Bleeding (small amount; patient currently menstruating), Cervical os Closed. No: Vaginal Discharge, Vaginal Lesions, Adenexal Tenderness, Adenexal Mass, Cervical Motion Tendernes, Odor Back: Present: Normal Inspection, CVA Tenderness (left side) Upper Extremity: Present: Normal Inspection, Normal ROM, NORMAL PULSES, Neurovascularly Intact, Capillary Refill < 2s. No: Cyanosis, Edema Lower Extremity: Present: Normal Inspection, NORMAL PULSES, Normal ROM, Neurovascularly Intact, Capillary Refill < 2 s. No: Edema Neurological: Present: GCS=15, CN II-XII Intact, Speech Normal, Motor Func Grossly Intact, Normal Sensory Function, Gait Normal Skin: Present: Warm, Dry, Normal Color. No: Rashes Lymphatic: No: Cervical Adenopathy Psychiatric: Present: Alert, Oriented x 3, Normal Insight, Normal Concentration, Normal Affect, Normal Mood Medical Decision Making ED Course and Treatment: Initial Plan: * CBC, CMP * Lipase * UA, culture * CT Abd/Pelvis * TV Ultrasound * IVF * Toradol * Pepcid * Zofran Labwork unremarkable Imaging unremarkable 14:19 Reports resolution of symptoms. resting comfortably in stretcher 15:10 Tolerated PO without difficulty. Jered crackers and apple juice. No vomiting. 16:02 Laughing in stretcher with friend. Patient with continued dysuria and left flank pain, states it feels like her typical UTIs. Will empirically treat with Keflex. Diagnostic testing results and plan of care discussed with patient, and strict instructions given regarding prescriptions, importance of follow up, and signs to return to Emergency Department, to include worsening abdominal pain, fever, chills, or any other new/worsening symptoms. Patient verbalizes understanding of discussion. Patient A&Ox3, ambulating with steady gait, stable for discharge home. - Lab Interpretations Lab Results: 10/29/18 11:26 Lab Results 10/29/18 11:28: Urine Color Light yellow, Urine Appearance Sl cloudy, Urine pH 6.5, Ur Specific [place] 1.015, Urine Protein Negative, Urine Glucose (UA) Negative, Urine Ketones Negative, Urine Blood Large H, Urine Nitrate Negative, Urine Bilirubin Negative, Urine Urobilinogen 0.2, Ur Leukocyte Esterase Negative, Urine RBC 5 - 10 H, Urine WBC 1 - 3, Ur Epithelial Cells 4 - 5, Urine Bacteria Few 10/29/18 11:26: WBC 8.3, RBC 4.33, Hgb 13.5, Hct 40.1, MCV 92.6, MCH 31.2, MCHC 33.7, RDW 12.2, Plt Count 309, MPV 9.6, Gran % 55.6, Lymph % (Auto) 31.7, Calloway % (Auto) 10.2 H, Eos % (Auto) 2.1, Baso % (Auto) 0.4, Gran # 4.60, Lymph # (Auto) 2.6, [place]ay # (Auto) 0.8 H, Eos # (Auto) 0.2, Baso # (Auto) 0.03 I have reviewed the lab results: Yes Interpretation: All labs normal - RAD Interpretation Narrative RAD Interpretations (Text): 10/29/18 14:35 CT Abd/Pelvis with IV contrast: FINDINGS: LOWER THORAX: Unremarkable. LIVER: Unremarkable. No gross lesion or ductal dilatation. GALLBLADDER AND BILE DUCTS: Unremarkable. PANCREAS: Unremarkable. No gross lesion or ductal dilatation. SPLEEN: Unremarkable. ADRENALS: Unremarkable. No mass. KIDNEYS AND URETERS: Unremarkable. No hydronephrosis. No solid mass. VASCULATURE: Unremarkable. No aortic aneurysm. No aortic atherosclerotic calcification or mural plaque present. BOWEL: Unremarkable. No obstruction. No gross mural thickening. APPENDIX: Normal appendix. PERITONEUM: Unremarkable. No free fluid. No free air. LYMPH NODES: Unremarkable. No enlarged lymph nodes. BLADDER: Unremarkable. REPRODUCTIVE: Unremarkable. 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 No acute fracture. OTHER FINDINGS: None. IMPRESSION: No acute abdominal pelvic pathology. Transvaginal Ultrasound: FINDINGS: UTERUS: Measures 6.5 x 3.6 x 4.5 cm. Normal in size and appearance. No fibroid or other mass lesion seen. ENDOMETRIUM: Measures 4 mm in diameter. Unremarkable. CERVIX: No cervical abnormality identified. RIGHT OVARY: Measures 2.7 x 1.7 x 2.0 cm. No solid mass. Normal flow. LEFT OVARY: Measures 2.1 x 1.2 x 0.9 cm. No solid mass. Normal flow. FREE FLUID: No significant free fluid noted. OTHER FINDINGS: None. IMPRESSION: Unremarkable pelvic ultrasound. Care Attendant: Radiologist Disposition/Present on Arrival - Present on Arrival Any Indicators Present on Arrival: No History of DVT/PE: No History of Uncontrolled Diabetes: No Urinary Catheter: No History of Decub. Ulcer: No History Surgical Site Infection Following: None - Disposition Have Diagnosis and Disposition been Completed?: Yes Diagnosis: UTI (urinary tract infection), Flank pain Disposition: HOME/ ROUTINE Disposition Time: 16:45 Patient Plan: Discharge Condition: IMPROVED Discharge Instructions (ExitCare): Acute Abdomen (Belly Pain), Adult (DC), Nausea and Vomiting, Adult (DC), Menstrual Cramps (DC) Print Language: UKRAINIAN Additional Instructions: Aumentar los fluidos Ibuprofeno / tylenol para el dolor [place] antibiticos cada 12 horas catina 10 altamirano. Seguimiento con clnica o mdico primario en 2 altamirano. Regrese a la vanessa de emergencias con cualquier sntoma nuevo o que empeore Prescriptions: Cephalexin [Keflex] 500 mg PO Q12H 10 Days #20 capsule Referrals: [facility] [place] [Outside] - Follow up with primary Ophelia Masters MD [Medical Doctor] - Follow up with primary Forms: [employer] (Libyan), WORK NOTE
[2018-10-29 11:58] LABS: ALB/GLOB RATIO 1.3 (1.1-1.8); ALBUMIN 4.3 g/dL (3.0-4.8); ALT/SGPT 21 U/L (7-56); AST/SGOT 20 U/L (14-36); BLOOD UREA NITROGEN 10 mg/dL (7-21); CALCIUM 9.5 mg/dL (8.4-10.5); GFR NON-AFRICAN AMERICAN > 60
[2018-10-29] MEDS ORDERED: Sodium Chloride 0.9% 1,000 ML IV STA (12:02)
[2018-10-29] MEDS ORDERED: Iohexol 350 MG/100 ML VIAL ONE (13:08)
--- NOTE | 2018-10-29 14:30 | CT ---
Date of service: 10/29/2018 PROCEDURE: CT Abdomen and Pelvis with contrast HISTORY: left sided flank pain, N/V/D COMPARISON: CT scan of the abdomen and pelvis dated 01/31/2014. TECHNIQUE: Contrast dose: 100 mL Omnipaque 350 Radiation dose: Total exam DLP = 632.45 mGy-cm. This CT exam was performed using one or more of the following dose reduction techniques: Automated exposure control, adjustment of the mA and/or kV according to patient size, and/or use of iterative reconstruction technique. FINDINGS: LOWER THORAX: Unremarkable. LIVER: Unremarkable. No gross lesion or ductal dilatation. GALLBLADDER AND BILE DUCTS: Unremarkable. PANCREAS: Unremarkable. No gross lesion or ductal dilatation. SPLEEN: Unremarkable. ADRENALS: Unremarkable. No mass. KIDNEYS AND URETERS: Unremarkable. No hydronephrosis. No solid mass. VASCULATURE: Unremarkable. No aortic aneurysm. No aortic atherosclerotic calcification or mural plaque present. BOWEL: Unremarkable. No obstruction. No gross mural thickening. APPENDIX: Normal appendix. PERITONEUM: Unremarkable. No free fluid. No free air. LYMPH NODES: Unremarkable. No enlarged lymph nodes. BLADDER: Unremarkable. REPRODUCTIVE: Unremarkable. 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 No acute fracture. OTHER FINDINGS: None. IMPRESSION: No acute abdominal pelvic pathology.
--- NOTE | 2018-10-29 16:17 | US ---
Date of service: 10/29/2018 HISTORY: rule out torsion COMPARISON: None available. TECHNIQUE: Grayscale, color Doppler and spectral evaluation the pelvis performed transabdominally and transvaginally FINDINGS: UTERUS: Measures 6.5 x 3.6 x 4.5 cm. Normal in size and appearance. No fibroid or other mass lesion seen. ENDOMETRIUM: Measures 4 mm in diameter. Unremarkable. CERVIX: No cervical abnormality identified. RIGHT OVARY: Measures 2.7 x 1.7 x 2.0 cm. No solid mass. Normal flow. LEFT OVARY: Measures 2.1 x 1.2 x 0.9 cm. No solid mass. Normal flow. FREE FLUID: No significant free fluid noted. OTHER FINDINGS: None. IMPRESSION: Unremarkable pelvic ultrasound.
[2018-10-29 16:56] VITALS: BP 121/78; PULSE 80; O2SAT 100
== END 2018-10-29 16:54 | disposition home or self-care (01) ==
LOC: ED 10:49
DX: N39.0 Urinary tract infection, site not specified (principal); R10.9 Unspecified abdominal pain; E03.9 Hypothyroidism, unspecified
CPT/HCPCS: 74177; 76830; 80053; 81001; 83690; 85025; 87086; 96374; 96375; 99283; J1885; J2405; J7030; Q9967